=== PATIENT | female | born 1990 | race American Indian/Alaskan Native ===

== ENCOUNTER 2017-02-18 21:48 | Emergency (ER) | payer MEDICAID, OTHER ==
--- NOTE | 2017-02-18 23:01 | Emergency Department Report ---
ED Female HPI - General Chief complaint: Urogenital-Female Stated complaint: VAGINAL DISCHARGE/ITCH Time Seen by Provider: 02/18/17 22:22 Source: patient Mode of arrival: Ambulatory Limitations: No Limitations - History of Present Illness Initial comments: Patient here reports that she is having white vaginal discharge with some itching and 4 days. She says she is not concerned about STDs because she does not have on Vasotec that she is not having any sex at present. She denies any nausea or vomiting. Denies any vaginal bleeding in. Denies any abdominal or back pain. Denies any fever or chills. Denies any urinary burning and frequency urgency. Pain is 0-10. MD Complaint: vaginal discharge Onset/Timin -: days(s) Severity scale (0 -10): 0 Are you Now?: No Last Menstrual Period: 02/09/17 EDC: 11/16/17 Associated Symptoms: vaginal discharge. denies: vaginal bleeding, abdominal pain, nausea/vomiting, fever/chills, headaches, loss of appetite, dysuria, hematuria, rash, seizure, shortness of breath, syncope, weakness - Related Data Sexually active: No Previous Rx's Medication Instructions Recorded Last Taken Type Ibuprofen [Motrin] 600 mg PO Q8H PRN #15 tablet 11/29/15 Unknown Rx Metaxalone [Skelaxin] 800 mg PO TID PRN #15 tablet 11/29/15 Unknown Rx Nitrofurantoin Green/M-Cryst 100 mg PO Q12HR #14 capsule 02/19/17 Unknown Rx [Macrobid CAP] metroNIDAZOLE [Flagyl] 500 mg PO Q12H #14 tablet 02/19/17 Unknown Rx Allergies Allergy/AdvReac Type Severity Reaction Status Date / Time No Known Allergies Allergy Unverified 11/29/15 15:59 ED Review of Systems ROS: Stated complaint: VAGINAL DISCHARGE/ITCH Other details as noted in HPI Comment: All other systems reviewed and negative Constitutional: denies: chills, fever ENT: denies: throat pain Respiratory: no symptoms reported Cardiovascular: denies: chest pain, palpitations, edema, syncope Gastrointestinal: denies: abdominal pain, nausea, vomiting, diarrhea, constipation Genitourinary: discharge. denies: urgency, dysuria, frequency, hematuria, abnormal menses Musculoskeletal: denies: back pain, joint swelling, arthralgia, myalgia Skin: denies: rash Neurological: denies: headache, weakness, numbness, paresthesias, confusion, abnormal gait, vertigo ED Past Medical Hx - Past Medical History Previous Medical History?: No - Surgical History Past Surgical History?: No - Family History Family history: no significant - Social History Smoking Status: Never Smoker Substance Use Type: Alcohol Other Social History: single - Medications Home Medications: Home Medications Medication Instructions Recorded Confirmed Last Taken Type Ibuprofen [Motrin] 600 mg PO Q8H PRN #15 tablet 11/29/15 Unknown Rx Metaxalone [Skelaxin] 800 mg PO TID PRN #15 tablet 11/29/15 Unknown Rx Nitrofurantoin Green/M-Cryst 100 mg PO Q12HR #14 capsule 02/19/17 Unknown Rx [Macrobid CAP] metroNIDAZOLE [Flagyl] 500 mg PO Q12H #14 tablet 02/19/17 Unknown Rx ED Physical Exam - General Limitations: No Limitations General appearance: alert, in no apparent distress - Head Head exam: Present: atraumatic, normocephalic, normal inspection - Eye Eye exam: Present: normal appearance, PERRL, EOMI Pupils: Present: normal accommodation - ENT ENT exam: Present: normal exam, normal orophraynx, mucous membranes moist - Neck Neck exam: Present: normal inspection, full ROM. Absent: tenderness, meningismus, lymphadenopathy - Respiratory Respiratory exam: Present: normal lung sounds bilaterally. Absent: respiratory distress, chest wall tenderness - Cardiovascular Cardiovascular Exam: Present: regular rate, normal rhythm, normal heart sounds - GI/Abdominal GI/Abdominal exam: Present: soft, normal bowel sounds. Absent: distended, tenderness, guarding, rebound, rigid, organomegaly, mass, bruit - External exam: Present: normal external exam. Absent: erythema, swelling, lesions, lacerations, ecchymosis, bleeding Speculum exam: Present: vaginal discharge, cervical discharge. Absent: erythema , vaginal bleeding, foreign body, tissue, laceration Bi-manual exam: Present: normal bi-manual exam. Absent: cervical motion tendernes, adnexal tenderness, adnexal mass, uterine enlargement, uterine tenderness - Extremities Exam Extremities exam: Present: normal inspection, full ROM, normal capillary refill. Absent: tenderness, pedal edema, joint swelling, calf tenderness - Back Exam Back exam: Present: normal inspection, full ROM. Absent: tenderness, CVA tenderness (R), CVA tenderness (L), muscle spasm, paraspinal tenderness, vertebral tenderness, rash noted - Neurological Exam Neurological exam: Present: alert, oriented X3, normal gait, reflexes normal. Absent: motor sensory deficit - Psychiatric Psychiatric exam: Present: normal affect, normal mood - Skin Skin exam: Present: warm, dry, intact, normal color. Absent: rash ED Course Vital Signs 02/18/17 21:53 Temperature 98.7 F Pulse Rate 81 Respiratory 20 Rate Blood Pressure 110/73 O2 Sat by Pulse 100 Oximetry - Reevaluation(s) Reevaluation #1: 02/19/17 00:08 Patient stable throughout ED course. ED Medical Decision Making - Lab Data Lab Results 02/18/17 Range/Units 20:17 Urine Color Yellow (Yellow) Urine Turbidity Clear (Clear) Urine pH 6.0 (5.0-7.0) Ur Specific [place] 1.013 (1.003-1.030) Urine Protein <15 mg/dl (Negative) mg/dL Urine Glucose (UA) Neg (Negative) mg/dL Urine Ketones Tr (Negative) mg/dL Urine Blood Mod (Negative) Urine Nitrite Neg (Negative) Urine Bilirubin Neg (Negative) Urine Urobilinogen 2.0 (<2.0) mg/dL Ur Leukocyte Esterase Mod (Negative) Urine WBC (Auto) 4.0 (0.0-6.0) /HPF Urine RBC (Auto) 4.0 (0.0-6.0) /HPF U Epithel Cells (Auto) 3.0 (0-13.0) /HPF Urine Mucus Few /HPF Urine HCG, Qual Negative (Negative) Gonorrhea and chlamydia pending Wet prep revealed greater than 20% clue cells, negative Trichomonas and negative yeast Urine culture pending - Medical Decision Making ED course: Patient here reports vaginal discharge 4 days with a chin and has no concern for STDs because she says she is not sexually active at present. Patient was not having any other symptoms nor was she having any back or abdominal pain. Urinalysis revealed trace ketone, less than 50% protein, moderate leukocyte Estrace and moderate blood. Urine is negative. Wet prep revealed greater than 20% to cell, no Trichomonas and no yeast. Urine culture sent and pending N gonorrhea and chlamydia pending. RESULTS as discussed with patient along with diagnosis and treatment plan and she voiced understanding. I discussed with her to avoid douching and to follow up with OB/ [facility] for female exam to include Pap smear. Diagnostic/lab: Urinalysis positive leukocyte esterase, positive moderate blood , urine culture pending. Gonorrhea and chlamydia pending. Wet prep was positive bacterial vaginosis, negative yeast and Trichomonas. Assessment/plan 1. Bacterial vaginosis 2. Vaginal discharge-patient not concerned for STD and would like to wait for gonorrhea and chlamydia results. 3. STD screening 4. Acute cystitis with hematuria Patient discharged home in stable condition with prescription to treat bacterial vaginosis Flagyl and to treat UTI Macrobid. She was referred to OB/ [facility] Dr. Yuni Armendariz to follow-up on Wednesday for female exam to include Pap smear. Critical care attestation.: If time is entered above; I have spent that time in minutes in the direct care of this critically ill patient, excluding procedure time. ED Disposition Clinical Impression: Acute cystitis with hematuria, Vaginal discharge, Bacterial vaginosis, Screen for STD (sexually transmitted disease) Disposition: - TO HOME OR SELFCARE Is pt being admited?: No Does the pt Need Aspirin: No Condition: Stable Instructions: Bacterial Vaginosis (ED), Urinary Tract Infection in Women (ED), Safe Sex (ED) Additional Instructions: Please avoid douching as this can cause bacterial vaginosis Take Flagyl twice daily for bacterial vaginosis Take Macrobid twice daily for urinary tract infection Increased her fluid intake to 2-3 L of fluid to include mostly water per day Follow up with [facility] as discussed. Prescriptions: metroNIDAZOLE [Flagyl] 500 mg PO Q12H #14 tablet Nitrofurantoin Green/M-Cryst [Macrobid CAP] 100 mg PO Q12HR #14 capsule Referrals[facility] [Outside] - 3-5 Days YUNI ARMENDARIZ MD [Staff Physician] - 02/22/17 Forms: STI Treatment and Prevention, Work/School Release Form(ED)
[2017-02-18 23:38] LABS: Bilirubin,Urine NEG (Negative); Blood,Urine MOD (Negative); Ketones,Urine TR mg/dL (Negative); Leukocyte Esterase,Urine MOD (Negative); Mucus,Urine FEW /HPF; Nitrite,Urine NEG (Negative); Protein,Urine <15 mg/dL mg/dL (Negative)
[2017-02-19 00:31] VITALS: BP 131/78
== END 2017-02-19 00:30 | disposition home or self-care (01) ==
LOC: ED 21:48
DX: N30.01 Acute cystitis with hematuria (principal); N76.0 Acute vaginitis; Z11.3 Encounter for screening for infections with a predominantly sexual mode of transmission
CPT/HCPCS: 81001; 81025; 87086; 87210; 87591; 99284

== ENCOUNTER 2017-11-19 22:19 | Emergency (ER) | payer SELFPAY ==
[2017-11-20 00:23] LABS: HCG Qualitative,Urine Negative (Negative)
[2017-11-20 00:27] LABS: Bilirubin,Urine NEG (Negative); Blood,Urine SM (Negative); Color,Urine Yellow (Yellow); Mucus,Urine FEW /HPF; Protein,Urine <15 mg/dL mg/dL (Negative); Urobilinogen,Urine < 2.0 mg/dL (<2.0)
--- NOTE | 2017-11-20 01:37 | Emergency Department Report ---
ED Female HPI - General Chief complaint: Urogenital-Female Stated complaint: VAGINAL D/C WITH ODOR Time Seen by Provider: 11/20/17 01:08 Source: patient Mode of arrival: Ambulatory Limitations: No Limitations - History of Present Illness Initial comments: This is a 26-year-old female with no prior medical history who presents to ED complaining of vaginal odor times one week. Patient states she has not really noticed any vaginal discharge but has noticed very pungent odor from her vagina. She states last menstrual period was last month but cannot recall the date. She denies dysuria, frequency, hematuria. She states she took plan P pill couple weeks ago, otherwise she takes no other medication and has no other symptoms - Related Data Previous Rx's Medication Instructions Recorded Last Taken Type Ibuprofen [Motrin] 600 mg PO Q8H PRN #15 tablet 11/29/15 Unknown Rx Metaxalone [Skelaxin] 800 mg PO TID PRN #15 tablet 11/29/15 Unknown Rx Nitrofurantoin [place]/M-Cryst 100 mg PO Q12HR #14 capsule 02/19/17 Unknown Rx [Macrobid CAP] metroNIDAZOLE [Flagyl TAB] 500 mg PO Q12H #14 tablet 11/20/17 Unknown Rx Allergies Allergy/AdvReac Type Severity Reaction Status Date / Time No Known Allergies Allergy Unverified 11/29/15 15:59 ED Review of Systems ROS: Stated complaint: VAGINAL D/C WITH ODOR Other details as noted in HPI Constitutional: denies: chills, fever Eyes: denies: eye pain, eye discharge, vision change ENT: denies: ear pain, throat pain Respiratory: denies: cough, shortness of breath, wheezing Cardiovascular: denies: chest pain, palpitations Endocrine: no symptoms reported Gastrointestinal: denies: abdominal pain, nausea, diarrhea Genitourinary: denies: urgency, dysuria, discharge Musculoskeletal: denies: back pain, joint swelling, arthralgia Skin: denies: rash, lesions Neurological: denies: headache, weakness, paresthesias Psychiatric: denies: anxiety, depression Hematological/Lymphatic: denies: easy bleeding, easy bruising ED Past Medical Hx - Past Medical History Previous Medical History?: No - Surgical History Past Surgical History?: No - Social History Smoking Status: Former Smoker Substance Use Type: Alcohol - Medications Home Medications: Home Medications Medication Instructions Recorded Confirmed Last Taken Type Ibuprofen [Motrin] 600 mg PO Q8H PRN #15 tablet 11/29/15 Unknown Rx Metaxalone [Skelaxin] 800 mg PO TID PRN #15 tablet 11/29/15 Unknown Rx Nitrofurantoin [place]/M-Cryst 100 mg PO Q12HR #14 capsule 02/19/17 Unknown Rx [Macrobid CAP] metroNIDAZOLE [Flagyl TAB] 500 mg PO Q12H #14 tablet 11/20/17 Unknown Rx ED Physical Exam - General Limitations: No Limitations General appearance: alert, in no apparent distress - Head Head exam: Present: atraumatic, normocephalic - Eye Eye exam: Present: normal appearance - ENT ENT exam: Present: mucous membranes moist - Neck Neck exam: Present: normal inspection - Respiratory Respiratory exam: Present: normal lung sounds bilaterally. Absent: respiratory distress - Cardiovascular Cardiovascular Exam: Present: regular rate, normal rhythm. Absent: systolic murmur, diastolic murmur, rubs, gallop - GI/Abdominal GI/Abdominal exam: Present: soft, normal bowel sounds - External exam: Present: normal external exam. Absent: erythema, swelling, lesions, bleeding Speculum exam: Present: vaginal discharge. Absent: erythema, vaginal bleeding, laceration Bi-manual exam: Present: normal bi-manual exam. Absent: cervical motion tendernes, adnexal tenderness, adnexal mass, uterine tenderness - Extremities Exam Extremities exam: Present: normal inspection - Back Exam Back exam: Present: normal inspection - Neurological Exam Neurological exam: Present: alert, oriented X3 - Psychiatric Psychiatric exam: Present: normal affect, normal mood - Skin Skin exam: Present: warm, dry, intact, normal color. Absent: rash ED Course Vital Signs 11/19/17 22:29 Temperature 98.3 F Pulse Rate 79 Respiratory 18 Rate Blood Pressure 127/89 O2 Sat by Pulse 100 Oximetry ED Medical Decision Making - Lab Data Laboratory Last Values Urine Color Yellow (Yellow) 11/19/17 Unknown Urine Turbidity Clear (Clear) 11/19/17 Unknown Urine pH 7.0 (5.0-7.0) 11/19/17 Unknown Ur Specific [place] 1.013 (1.003-1.030) 11/19/17 Unknown Urine Protein <15 mg/dl mg/dL (Negative) 11/19/17 Unknown Urine Glucose (UA) Neg mg/dL (Negative) 11/19/17 Unknown Urine Ketones Neg mg/dL (Negative) 11/19/17 Unknown Urine Blood Sm (Negative) 11/19/17 Unknown Urine Nitrite Neg (Negative) 11/19/17 Unknown Ur Reducing Substances Not Reportable 11/19/17 Unknown Urine Bilirubin Neg (Negative) 11/19/17 Unknown Urine Ictotest Not Reportable 11/19/17 Unknown Urine Urobilinogen < 2.0 mg/dL (<2.0) 11/19/17 Unknown Ur Leukocyte Esterase Sm (Negative) 11/19/17 Unknown Urine WBC (Auto) 4.0 /HPF (0.0-6.0) 11/19/17 Unknown Urine RBC (Auto) 4.0 /HPF (0.0-6.0) 11/19/17 Unknown U Epithel Cells (Auto) 3.0 /HPF (0-13.0) 11/19/17 Unknown Urine Mucus Few /HPF 11/19/17 Unknown Urine HCG, Qual Negative (Negative) 11/19/17 Unknown - Medical Decision Making This is a 26-year-old female presents with vaginitis ED course: Urinalysis negative urine test negati, wet prep and chlamydia cultures collected I discussed this findings with the patient. I discussed with the patient follow-up with [facility] doctor as referred Vital signs are normal patient is in acute distress Critical care attestation.: If time is entered above; I have spent that time in minutes in the direct care of this critically ill patient, excluding procedure time. ED Disposition Clinical Impression: Bacterial vaginosis Vaginitis Qualifiers: Chronicity: acute Qualified Code(s): N76.0 - Acute vaginitis Disposition: - TO HOME OR SELFCARE Is pt being admited?: No Does the pt Need Aspirin: No Condition: Stable Instructions: Bacterial Vaginosis (ED), Vaginitis (ED) Additional Instructions: Make sure to follow up with the primary care physician as discussed. Take all your medications as you've been prescribed. If you have any worsening symptoms or develop new symptoms please return to ED immediately. Prescriptions: metroNIDAZOLE [Flagyl TAB] 500 mg PO Q12H #14 tablet Referrals: PRIMARY CARE, [Primary Care Provider] - 3-5 Days ALEKSANDER JOHANSEN MD [Referring] - 3-5 Days [facility] [Outside] - 3-5 Days Forms: Work/School Release Form(ED), STI Treatment and Prevention Time of Disposition: 02:22
[2017-11-20 04:59] VITALS: BP 122/83
== END 2017-11-20 02:30 | disposition home or self-care (01) ==
LOC: ED 22:19
DX: N76.0 Acute vaginitis (principal)
CPT/HCPCS: 81001; 81025; 87086; 87210; 87591